=== PATIENT | male | born 1965 | race Caucasian/White ===

== ENCOUNTER 2019-02-17 20:37 | Emergency (ER) | payer MEDICARE ==
[~2019-02-17] VITALS: Ht 182.9 cm; Wt 117.9 kg
[2019-02-17 20:54] VITALS: BP 119/86
== END 2019-02-17 23:54 | disposition left against medical advice (07) ==
LOC: ER 20:39
DX: R07.9 Chest pain, unspecified (principal); Z53.21 Procedure and treatment not carried out due to patient leaving prior to being seen by health care provider
CPT/HCPCS: 71045; 93005